=== PATIENT | male | born 1980 ===

== ENCOUNTER 2017-10-31 22:49 | Emergency (ER) | payer SELFPAY ==
[2017-10-31 22:56] VITALS: BP 123/79; PULSE 97; RESP 20; TEMP 97.1; O2SAT 97
[2017-10-31] MEDS ORDERED: Sodium Chloride 0.9% 1,000 ML IV STA (23:34)
--- NOTE | 2017-11-01 00:54 | ED PDOC ---
HPI: Psych/Substance Abuse Time Seen by Provider: 10/31/17 23:31 Chief Complaint (Nursing): Alcohol Ingestion Chief Complaint (Provider): Alcohol Ingestion ED Caveat: Intoxicated Modifying Factor(s): Alcohol Additional Complaint(s): 43 y/o male is brought to the ED by EMS for alcohol intoxication. [facility]. Patient is responsive to pain. Past Medical History Reviewed: Historical Data, Nursing Documentation, Vital Signs Vital Signs: Last Vital Signs Temp 97.1 F L 10/31/17 22:52 Pulse 97 H 10/31/17 22:52 Resp 20 10/31/17 22:52 BP 123/79 10/31/17 22:52 Pulse Ox 97 10/31/17 22:52 - Family History Family History: States: Unknown Family Hx - Social History Alcohol: Other (Yes) - Allergies Allergies/Adverse Reactions: Allergies Allergy/AdvReac Type Severity Reaction Status Date / Time Unobtainable Allergy Verified 10/31/17 23:34 Review of Systems Review Of Systems: ROS cannot be obtained secondary to pt's inabilty to answer questions. (Information cannot be obtained due to intoxication) Physical Exam - Reviewed Nursing Documentation Reviewed: Yes Vital Signs Reviewed: Yes - Physical Exam Appears: Positive for: Uncomfortable (Patient is intoxicated) Head Exam: Positive for: ATRAUMATIC, NORMAL INSPECTION, NORMOCEPHALIC Skin: Positive for: Normal Color, Warm, Dry Eye Exam: Positive for: Normal appearance ENT: Positive for: Normal ENT Inspection Neck: Positive for: Normal, Supple Cardiovascular/Chest: Positive for: Regular Rate, Rhythm. Negative for: Murmur Respiratory: Positive for: Normal Breath Sounds. Negative for: Accessory Muscle Use, Respiratory Distress Gastrointestinal/Abdominal: Positive for: Normal Exam Back: Positive for: Normal Inspection Extremity: Positive for: Normal ROM. Negative for: Deformity Neurologic/Psych: Negative for: Alert (Due to intoxication), Oriented (Due to intoxication) - Laboratory Results Result Diagrams: 11/01/17 01:44 11/01/17 01:44 - ECG O2 Sat by Pulse Oximetry: 97 (RA) Pulse Ox Interpretation: Normal Medical Decision Making Medical Decision Making: Time: 23:34 Initial Impression: 43 y/o intoxicated male Plan: CT Head w/o contrast Alcohol serum CMP Drug screen CBC w/ differential Sodium chloride 1L IV Accucheck Labs reviewed show no clinically sig abnormalities with exception of BAL CT Head NAD At 6AM pt is AAO x3 and has steady gait with fluent speech Stable for discharge home Scribe Attestation: Documented by Archana Sheehan acting as a scribe for Maverick Chu MD. Scribe Attestation: All medical record entries made by the Scribe were at my direction and personally dictated by me. I have reviewed the chart and agree that the record accurately reflects my personal performance of the history, physical exam, medical decision making, and the department course for this patient. I have also personally directed, reviewed, and agree with the discharge instructions and disposition. Disposition - Clinical Impression Clinical Impression: Alcohol abuse with intoxication - Disposition Disposition: Routine/Home Disposition Time: 06:00 Condition: IMPROVED Instructions: Alcohol Abuse and Alcoholism (DC) Forms: [employer] (Kiswahili) Print Language: CHINESE
[2017-11-01 01:54] LABS: BASO % 0.6 % (0.0-2.0); EOS # 0.9 K/uL (0.0-0.7); EOS % 10.8 % (0.0-4.0); HEMOGLOBIN 16.1 g/dL (12.0-18.0); LYMPH # 3.4 K/uL (1.0-4.3); LYMPH % 40.1 % (20.0-40.0); MEAN CELL VOLUME 89.3 fl (80.0-94.0); MEAN CORPUSCULAR HEMOGLOBIN 30.6 pg (27.0-31.0); MEAN CORPUSCULAR HGB CONC 34.2 g/dL (33.0-37.0); MEAN PLATELET VOLUME 8.1 fl (7.2-11.7); MONO # 0.4 K/uL (0.0-0.8); MONO % 5.3 % (0.0-10.0); NEUT # 3.7 K/uL (1.8-7.0); NEUT % 43.2 % (50.0-75.0); NRBC % 0.1 % (0.0-0.0); RBC 5.25 Mil/uL (4.40-5.90); RED CELL DISTRIBUTION WIDTH 13.1 % (11.5-14.5); WHITE BLOOD COUNT 8.4 K/uL (4.8-10.8)
[2017-11-01 02:27] LABS: ALB/GLOB RATIO 1.2 (1.0-2.1); ALBUMIN 4.6 g/dL (3.5-5.0); ALT/SGPT 58 U/L (21-72); AST/SGOT 37 U/L (17-59); BLOOD UREA NITROGEN 15 mg/dl (9-20); CALCIUM 9.1 mg/dL (8.4-10.2); GFR AFRICAN-AMERICAN > 60; GFR NON-AFRICAN AMERICAN > 60
--- NOTE | 2017-11-01 02:29 | CT ---
EXAM: CT Head Without Intravenous Contrast CLINICAL HISTORY: 43 years old, male; Signs and symptoms; Altered mental status/memory loss; Confusion or disorientation; Additional info: AMS TECHNIQUE: Axial computed tomography images of the head/brain without intravenous contrast. All CT scans at this facility use one or more dose reduction techniques, viz.: automated exposure control; ma/kV adjustment per patient size (including targeted exams where dose is matched to indication; i.e. head); or iterative reconstruction technique. Coronal and sagittal reformatted images were created and reviewed. COMPARISON: No relevant prior studies available. FINDINGS: Brain: No intracranial hemorrhage. No mass. No definite edema. Ventricles: No hydrocephalus. Bones/joints: No acute fracture. Soft tissues: Unremarkable. Sinuses: Scattered minimal mucosal thickening. RIGHT maxillary retention cyst. Mastoid air cells: No mastoid effusion. Orbits: Unremarkable as visualized. IMPRESSION: 1. No definite acute intracranial abnormality. 2. Incidental/non-acute findings are described above.
== END 2017-11-01 06:59 | disposition home or self-care (01) ==
LOC: H.ER 22:49 → EDBD 22:49 → H.ER 11-01 06:59
DX: F10.129 Alcohol abuse with intoxication, unspecified (principal)
CPT/HCPCS: 70450; 80053; 82948; 85025; 99283; G0480